=== PATIENT | female | born 1960 | race Hispanic/Latino ===

== ENCOUNTER 2017-03-26 18:15 | Emergency (ER) | payer OTHER ==
[~2017-03-26] VITALS: Ht 152.4 cm; Wt 65.9 kg
[~2017-03-26 18:15] MED LIST: AMOX875T2 PO; BIA500 PO; FES300 PO; OMEP40CA25 PO
[2017-03-26 18:18] VITALS: BP 196/76; PULSE 67; RESP 20; O2SAT 100
--- NOTE | 2017-03-26 18:25 | ED.REPORT ---
HPI-Chest Pain 40 and Over Date of Service Mar 26, 2017 ED Provider: Torri Jimenez MD 56 y/o female with a hx of HTN presents to the ED complaining of burning substernal chest pain that radiates to her her upper back and left arm, onset 6 hours ago. The pt states, as interpreted by her son, she was just doing laundry when she began experiencing the pain that was 10/10 in severity. Associated sx include shortness of breath, chills, diaphoresis, nausea and myalgia. The pt also complains of weakness and numbness in her left hand and pain extending up her left leg to her back. She denies vomiting. She has never experienced similar pain before. Nursing Notes Stated Complaint: CHEST PAIN Chief Complaint: Chest Pain Nursing Notes Reviewed: Yes Allergies: Coded Allergies: No Known Allergies (Unverified Allergy, Unknown, 03/26/17) Scheduled Amoxicillin Trihydrate (Amoxicillin 875MG Tab) 875 Mg Tablet 1 GM PO BID Clarithromycin (Biaxin) 500 Mg Tablet 500 MG PO BID Ferrous Sulfate-Expunged Drug, Do Not Renew! (Feosol-Expunged Drug, Do Not Renew !) 325 Mg Tablet 325 ( PO TID Omeprazole-Expunged Drug, Do Not Renew! (Omeprazole-Expunged Drug, Do Not Renew! 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) Arrived By: Walk-in Sudden in Onset?: Yes Onset Occurred: 5 - 8 hours ago Symptom Duration: Since onset Location: : Substernal Quality: Painful Radiation: : Arm left: Back Severity: Current: Severe Severity: Maximum: Pain level 10 out of 10 Recent Healthcare: No recent doctor visit Similar Sx Previous: No Past Medical History Past Medical History Reports: Hypertension Past Surgical History none reported Smoking History Never Smoker Social History Alcohol Use: Denies alcohol use Other Social History: Good social support Ambulatory Status Independent Review of Systems Constitutional: Reports: Chills Respiratory: Reports: Shortness of breath Cardiovascular: Reports: Chest pain GI: Reports: Nausea, Denies: Vomiting Musculoskeletal: Reports: Extremity pain (left leg), Myalgia Skin: Reports Diaphoresis Neurologic: Reports: Numbness (left hand), Weakness (left arm) Complete sys rev & neg: except as marked. Physical Exam Initial Vital Signs Vital Signs (First) Date Time Temp Pulse Resp B/P Pulse Ox O2 Delivery O2 Flow Rate FiO2 03/26/17 18:18 36.7 67 20 196/76 100 Room Air Initial VS: Reviewed, Vital signs abnormal Head / Eyes: Atraumatic, Normocephalic Extremities: Vascular intact, Neuro intact, No swelling, No tenderness Skin: Warm, Dry, No cyanosis Neurologic: Alert, Oriented, Nonfocal General/Constitutional: Awake, Alert, Cooperative Respiratory / Chest: Atraumatic, Breath sounds NL, Breath sounds = bilat, No respiratory distress, No rales, No rhonchi, No wheezing Cardiovascular: Heart rate NL, Regular rhythm, Heart sounds NL, No gallop, No murmurs, No rubs, Pulses = bilaterally Abdomen: Atraumatic, Soft, Non-tender Neck: Atraumatic, Supple, Full range of motion, No carotid bruit Interpretation & Diagnostics Lab Results Interpretation Result Diagram: 03/26/17 1825 03/26/17 1825 Test 03/26/17 18:25 03/26/17 20:22 03/26/17 21:43 White Blood Count 5.1th/mm3 (3.8-10.1) Red Blood Count 4.07mil/mm3 (3.90-5.20) Hemoglobin 12.4g/dL (12.0-15.6) Hematocrit 37.8% (35.0-46.0) Mean Corpuscular Volume 92.9fL (81-100) Mean Corpuscular Hemoglobin 30.5pg (27.0-35.0) Mean Corpuscular Hemoglobin Concent 32.8% (32.0-37.0) Red Cell Distribution Width 12.9% (12.3-15.4) Platelet Count 249bil/L (150-400) Neutrophils (%) (Auto) 51.8% (40-74) Lymphocytes (%) (Auto) 31.9% (14-46) Monocytes (%) (Auto) 11.2% (4-12) Eosinophils (%) (Auto) 4.7% (0-5) Basophils (%) (Auto) 0.2% (0-3) Prothrombin Time 9.4sec (8.1-12.5) Prothromb Time International Ratio 0.88ratio Sodium Level 136mEq/L (134-144) Potassium Level 3.7mEq/L (3.5-5.2) Chloride Level 98mEq/L (97-108) Carbon Dioxide Level 21mmol/L (18-29) Blood Urea Nitrogen 26mg/dL (6-24) Creatinine 0.51mg/dL (0.57-1.00) Estimat Glomerular Filtration Rate 178mL/min (>59) Glucose Level 160mg/dL (60-99) Calcium Level 9.7mg/dL (8.5-10.1) Magnesium Level 2.2mg/dL (1.6-2.6) Total Bilirubin 0.3mg/dL (0.0-1.2) Aspartate Amino Transf (AST/SGOT) 48U/L (0-50) Alanine Aminotransferase (ALT/SGPT) 28U/L (0-32) Alkaline Phosphatase 93U/L (25-150) Total Protein 8.1g/dL (6.4-8.4) Albumin 3.8g/dL (3.4-5.0) Hold Card Top Tube Received (Received) Hold Urine Received (Received) Troponin T 0.010ug/L (0.0-0.011) ECG Interpretation ECG Interpretation: Sinus rhtyhm. Rate [address] changes. Q waves in 1 AVL No T wave abdnormalities Time: 18:28 Interpreted by: ED physician ECG Interpretation: Sinus rhtyhm. Rate 63 Time: 21:05 Interpreted by: ED physician Repeat ECG: Repeat ECG unchanged X-Ray Chest Interpretation Chest Xray Interpretation: IMPRESSION: 1. No acute cardiopulmonary disease. Dictated by: Ashok Wood M.D. on 03/26/2017 at 18:49 Approved by: Ashok Wood M.D. on 03/26/2017 at 18:49 View: Portable, 1 view Interpretation / Wet Read by: Interpret - Radiologist CT Chest Interpretation IMPRESSION: 1. No evidence of dissection in the thoracic aorta. 2. No central pulmonary embolism to the level of the segmental pulmonary arteries. 3. Patchy indistinct ground glass opacities in the lung bases are nonspecific but suggestive of a mild infectious or inflammatory process. Dictated by: Ashok Wood M.D. on 03/26/2017 at 20:19 Approved by: Ashok Wood M.D. on 03/26/2017 at 20:27 Study type: CT pulm angiogram Interpretation / Wet Read by: Interpret - Radiologist Re-Eval/Medical Decision Med Decision/Clinical Course The patient presents with chest and back pain. My biggest concern was for dissection which was ruled out by CT. The patient may be having esophageal spasm related to her gastritis. She was ruled out for an MN given it has been more than 9 hours since her pain with a negative EKG and normal cardiac enzymes however this still could be related to her heart so she was told to follow-up for a stress test. Additional differential diagnoses considered were pulmonary embolus, pneumonia, electrolyte abnormality, and musculoskeletal pain. Source of Hx: Old records Time of Eval: 21:29 Patient Status: Condition resolved Re-Evaluation/Progress Note: Rechecked pt. She is no longer expereincing chest pain. Discussed lab and imaging results. All questions answered. Time of Eval: 22:40 Patient Status: Condition improved Re-Evaluation/Progress Note: Rechecked pt. Discussed lab results, imaging results, diagnosis and plan to discharge. Pt understands and agrees with the plan. F/U instructions and RTER warning given. All questions addressed. Counseled Regarding: Diagnosis, Lab results, Need for follow-up, When/why to return to ED Discharge & Departure Primary Impression: Chest pain Chest pain type: unspecified Qualified Code: R07.9 - Chest pain, unspecified Disposition: Home Discharge Condition All VS Reviewed: Yes Patient Instructions: Chest Pain (ED) Additional Instructions: Thank you for entrusting us with your care today. Your lab and imaging results were reassuring. There is no sign of a heart attack. Your pain could be gastric or due your heart. Please remember to take your stomach medication. Follow up with your primary care provider or director payer for a stress test. Return to the emergency department in case of recurrent symptoms or any new or concerning symptoms. Jasmyn por confiarnos celestin cuidado hoy. Kylie resultados de laboratorio y de im genes fueron tranquilizadores. No hay signos de un ataque al corazn. Celestin dolor puede ser gstrico o debido a celestin corazn. Por favor recuerde rafia celestin medicamento para el estmago. Jenni un seguimiento con celestin proveedor de atencin primaria o cardilogo para cassius prueba de estrs. Regrese al servicio de urgencias en nuvia de sntomas recurrentes o cualquier sntoma nuevo o relacionado. Referrals: Radha Salazar MD (PCP) Scribe Attestation Portions of this note were transcribed by Herb Slaughter. I, , personally performed the history, physical exam and medical decision- making;I reviewed and confirmed the accuracy of the information in the transcribed note. Signed by Jalen Jeter. 03/26/17 22:47 copies to: Radha Salazar MD, Jena M MD Mar 26, 2017 18:25 Herb Slaughter Mar 26, 2017 18:37
[2017-03-26 18:45] LABS: BASOPHILS % (AUTO) 0.2 % (0-3); EOSINOPHILS % (AUTO) 4.7 % (0-5); MONOCYTES % (AUTO) 11.2 % (4-12); Mean Corpuscular Hemoglobin 30.5 pg (27.0-35.0); Mean Corpuscular Volume 92.9 fL (81-100); NEUTROPHILS % (AUTO) 51.8 % (40-74); Platelet Count 249 bil/L (150-400)
--- NOTE | 2017-03-26 18:51 | DRSVH ---
PROCEDURE: X-RAY CHEST ONE VIEW, PORTABLE ([id number]) INDICATIONS: CHEST PAIN TECHNIQUE: One view of the chest was acquired. COMPARISON: [facility], CR, CHEST 2VW, 11/24/2012, 14:47. FINDINGS: Surgical changes and devices: None. Lungs and pleura: No pleural effusions or pneumothorax. Lungs are clear. Mediastinum: Mediastinal contours appear normal. Heart size is normal. Bones and chest wall: No suspicious bony lesions. Overlying soft tissues appear unremarkable. IMPRESSION: 1. No acute cardiopulmonary disease. Dictated by: Ashok Wood M.D. on 03/26/2017 at 18:49 Approved by: Ashok Wood M.D. on 03/26/2017 at 18:49
[2017-03-26 18:54] VITALS: BP 156/54; PULSE 60; RESP 19; O2SAT 98
[2017-03-26 19:01] VITALS: BP 134/49; PULSE 65; RESP 14
[2017-03-26 19:05] LABS: INR 0.88 ratio
[2017-03-26 19:14] VITALS: BP 128/49; PULSE 65; RESP 16; O2SAT 96
[2017-03-26 19:17] LABS: Magnesium 2.2 mg/dL (1.6-2.6); TROPONIN T < 0.010 ug/L (0.0-0.011)
[2017-03-26] MEDS ORDERED: 0.9% Sodium Chloride 1,000 ML IV ONE (19:50)
--- NOTE | 2017-03-26 20:29 | DRSVH ---
PROCEDURE: CT ANGIOGRAPHY OF THE CHEST WITH AND WITHOUT CONTRAST ([id number]) INDICATIONS: Chest and back pain with hypertension. TECHNIQUE: After the administration of intravenous contrast, 3 mm thick sections acquired from the lung apices t o the posterior lung bases. 3-dimensional maximum intensity projection (MIP) oblique sagittal reform ats were then acquired parallel to the aortic arch, and/or 3-dimensional volume rendering reformats. For radiation dose reduction, the following was used: automated exposure control. COMPARISON: None. FINDINGS: Image quality: Excellent. Aorta: Aorta and great vessels are normal in size. No mural irregularity or contrast extravasation to suggest aortic injury. No intimal flaps to suggest dissection of the thoracic aorta. Mediastinum: No hematomas. Heart size is normal. No pericardial effusion. No mediastinal or hilar adenopathy by size criteria. Central pulmonary arteries are normal in size and demonstrate no filli ng defects to suggest central pulmonary embolism. Esophagus is normal in caliber. There is a small hiatal hernia. Lungs and pleura: There are a few small clustered ground glass opacities in the left lingula. A few patchy indistinct ground glass opacities are also demonstrated in the lower lobes. There is a stable 2 mm nodule in the right middle lobe. No pleural effusions or pneumothorax. Central and peripheral airways are patent and normal in caliber. Bones and chest wall: No axillary adenopathy by size criteria. Thyroid gland emesis and discrete no dules. No suspicious bony lesions. No vertebral body compression fractures. Abdomen: Visualized upper abdomen redemonstrates a lobulated hypoattenuating lesion in the left hepa tic lobe which measures up to 1.5 cm compared to 1.0 cm on the prior study from 2004. Findings may r eflect a hemangioma or hyperdense cyst. IMPRESSION: 1. No evidence of dissection in the thoracic aorta. 2. No central pulmonary embolism to the level of the segmental pulmonary arteries. 3. Patchy indistinct ground glass opacities in the lung bases are nonspecific but suggestive of a mi ld infectious or inflammatory process. Dictated by: Ashok Wood M.D. on 03/26/2017 at 20:19 Approved by: Ashok Wood M.D. on 03/26/2017 at 20:27
[2017-03-26 21:11] VITALS: BP 131/44; PULSE 62; RESP 22; O2SAT 96
[2017-03-26 22:59] VITALS: BP 143/43; PULSE 57; RESP 19; O2SAT 97
== END 2017-03-26 23:01 | disposition home or self-care (01) ==
LOC: SED 18:15
DX: R07.9 Chest pain, unspecified (principal); M54.9 Dorsalgia, unspecified; R06.02 Shortness of breath; R68.83 Chills (without fever); R61 Generalized hyperhidrosis; R11.0 Nausea; M79.1 Myalgia; R20.2 Paresthesia of skin; I10 Essential (primary) hypertension
CPT/HCPCS: 36415; 71010; 71275; 80053; 83735; 84484; 85025; 85610; 93005; 96360; 99285; J7030; Q9967